=== PATIENT | male | born 1985 | race Hispanic/Latino ===

== ENCOUNTER 2025-02-05 15:39 | Emergency (ER) | payer SELFPAY ==
[~2025-02-05] VITALS: Ht 167.6 cm; Wt 102.1 kg
[2025-02-05 16:38] VITALS: BP 143/91; PULSE 87; RESP 20; TEMP 98.1; O2SAT 99
--- NOTE | 2025-02-05 16:39 | ERN ---
General Chief Complaint: Penis Problem Stated Complaint: PENIS PAIN Time Seen by MD: 16:10 Source: patient History of Present Illness Initial Comments 39-YEAR-OLD MALE PRESENTS TO ED WITH PENILE LESIONS ONGOING FOR 3 MONTHS. PATIENT INITIALLY NOTICED REDNESS AROUND THE FORESKIN AREA 3 MONTHS AGO WHICH CAUSED SOME SCARRING THAT MADE IT PAINFUL TO RETRACT THE FORESKIN. PATIENT ALSO ADMITS TO DEVELOPING NEW PAINFUL LESIONS ON THE FORESKIN SINCE 3 DAYS. PATIENT DENIES POLYGAMY AND IS IN MONOGAMOUS RELATIONSHIP AND HAS UNPROTECTED SEX WITH HIS PARTNER. Allergies: Coded Allergies: No Known Drug Intolerances (Unverified Allergy, Unknown, 02/05/25) Past Medical History Past Medical History: Diabetes-Type II Past Surgical History: None ROS Dictation REVIEW OF SYSTEMS CONSTITUTIONAL: Denies fevers, chills, or night sweats. No unintentional weight loss reported. NEUROLOGICAL: Denies headache, motor weakness, sensory deficit, vertigo/spinning sensation CARDIOVASCULAR: Denies any exertional angina, dyspnea on exertion, orthopnea, paroxysmal nocturnal dyspnea, palpitations PULMONARY: Denies any shortness of breath, cough, phlegm/sputum, hemoptysis, pleuritic chest pain. GASTROINTESTINAL: Denies any type of dysphagia to either liquids or solids. Denies nausea, vomiting, pyrosis, early satiety, abdominal pain, diarrhea, constipation GENITOURINARY: Admits to painful penile lesions, Denies frequency, urgency, nocturia, hematuria or incontinence DERMATOLOGIC: Denies rashes, itching, redness. Physical Exam Physical Exam Dictation VITAL SIGNS: Reviewed. GENERAL APPEARANCE: Alert, oriented x3 HEAD AND FACE: Non-traumatic. EYES: PERRL, pink conjunctivas, eyelid no trauma, anterior chamber clear. EARS: Pinnas intact and no signs of trauma or erythema. Ear canals clear and no discharge. TMs no erythema. NOSE: No discharge, no bleeding. OROPHARYNX: Mouth normal, teeth no caries, tongue pink. Pharynx clear, no erythema. Tonsils no exudates, no abscesses noted. Mucous membrane moist. NECK: Supple, non-tender, no thyromegaly, no masses, no JVD, no bruits. BREAST: Deferred. CHEST: No tenderness, no crepitus, no paradoxical movement, no retractions. LUNGS: Clear, well-ventilated, symmetric, no rales, no wheezing, no rhonchi, no stridor, good breath sounds bilaterally. HEART: Regular rate, regular rhythm, no murmur, no gallops. VASCULAR: No peripheral edema. ABDOMEN: Soft, positive bowel sounds, nondistended, no guarding, nontender, no rebound, no masses no hepatomegaly, no splenomegaly, no Garcia's sign, no hernias. RECTAL: Deferred. GENITAL: Multiple, flat circular papules on the inner and outer surface of penile foreskin. NEUROLOGICAL: Normal speech, gross motor function intact, gross sensory function intact. MUSCULOSKELETAL: Neck nontender, full range of motion, back nontender, full range of motion. EXTREMITIES: Nontender, full range of motion. SKIN: Color pink, dry, no turgor, no rash, no lacerations, no abrasions, no contusions. LYMPHATICS: Deferred. MDM MDM: Patient presented with penile lesions for 3 months, mostly on the foreskin and which was pain less in the beginning and has more discomfort lately. Flat, papular circular lesions on the foreskin, resembling chancroid. Will be given a one dose of 2.4 million units of benzathine penicillin G Differential diagnosis: Primary syphillis, genital herpes, HPV warts. Rationale: Tests considered and ordered secondary to shared decision making include: Previous outside records reviewed: Old ER visits. Risk of complication and/or morbidity or mortality of patient management: None Medications-Per medication reconciliation Need for hospitalization: Patient does not meet criteria for hospitalization. Need for emergency major/minor surgery: No There are no social concerns with this patient. Prescription drug management Prescriptions will include symptomatic care Patient's prior external medical records from other ER visits were reviewed by me as indicated. Prior testing and results from previous visits were reviewed. Prior tests were taken into account with medical decision making and resource utilization, independent historian/historians were used to obtain complete medical history. I independently interpreted the test that were performed, results were reviewed by me and considered findings on radiology if ordered. * Medical management and examination interpretation discussions were had by me with other qualified healthcare professionals as indicated for the patient's care. ED Course Orders Procedure Category Date Status Time Penicillin G PHA 02/05/25 Complete Benzathine (Bicillin 16:30 Current Medications Medications (Trade) Dose Ordered Sig/Brandie Route PRN Reason Start Time Stop Time Status Last Admin Dose Admin Penicillin G Benzathine (BIcillin L-A) 2.4 milunits ONCE ONCE IM 02/05/25 16:30 02/05/25 16:38 DC Vital Signs Date Time Temp Pulse Resp B/P (MAP) Pulse Ox O2 Delivery O2 Flow Rate FiO2 02/05/25 16:38 98.1 87 20 143/91 99 Room Air* 0 21 02/05/25 15:45 98.1 81 18 149/96 98 DX & DISP Disposition: Discharge Departure Impression: Primary Impression: Primary genital syphilis Critical Time: 30 minutes Condition: Stable Additional Instructions: Your penile lesions most likely resemble syphilis and a 1 time dose of penicillin was given in the ER. Follow up with Dr. Marcio Cota for further evaluation and workup for Sexually transmitted diseases. Avoid unprotected sexual contact until further evaluation. Referrals: MARCIO COTA Time of Disposition: 16:40 MARIBEL RAY MD Feb 05, 2025 16:39 ABEBE BADILLO MD Feb 05, 2025 16:41
[2025-02-05] MEDS: PENIcillin G benZATHine L-A 1.2 MILUNITS/2 ML SYG IM ONE (17:06)
== END 2025-02-05 17:06 | disposition home or self-care (01) ==
LOC: EDH 15:39
DX: A51.0 Primary genital syphilis (principal); E11.9 Type 2 diabetes mellitus without complications
CPT/HCPCS: 99283; 96372; J0561